=== PATIENT | male | born 1940 | race Caucasian/White ===

== ENCOUNTER 2018-06-09 08:50 | Day surgery (SDC) | payer MEDICARE, BC ==
[2018-06-08 13:09] VITALS: BMI 32.1
[2018-06-09] MEDS ORDERED: PROPOFOL 200 MG/20 ML VIAL ONE (09:42)
[2018-06-09 09:44] LABS: #Eosinphils 0.1 thou/uL (0.0-0.7); #Lymphocytes 1.6 thou/uL (1.20-3.40); #Monocytes 0.5 thou/uL (0.11-0.59); #Neutrophils 3.6 thou/uL (1.40-6.50); %Basophils 0.4 % (0.0-1.0); %Eosinophils 2.3 % (0.0-10.0); %Lymphocytes 27.4 % (21.0-51.0); %Monocytes 8.7 % (0.0-10.0); %Neutrophils 61.2 % (42.0-75.0); Hemoglobin 14.1 g/dL (14.0-18.0); Mean Corpuscular HGB CONC 33.6 g/dL (32.0-36.0); Mean Corpuscular Hemoglobin 29.9 pg (27.0-31.0); Mean Corpuscular Volume 89.1 fL (78.0-98.0); Mean Platelet Volume 6.6 fL (7.4-10.4); Platelet Count 230 thou/uL (130-400); RBC Distribution Width 14.4 % (11.5-14.5); White Blood Cell (WBC) Count 5.9 thou/uL (4.8-10.8)
[2018-06-09] MEDS ORDERED: PROPOFOL 0 ML ONE (09:46)
[2018-06-09 09:51] LABS: PTT 37.9 SEC (22.9-36.1); Prothrombin Time 22.5 SEC (12.0-14.7)
[2018-06-09 10:06] LABS: Anion Gap 12 mmol/L (10-20); BUN (Urea Nitrogen) 11 mg/dL (8.4-25.7); Calc. Creatinine Clearance 94 mL/min (70-130); Calcium 9.3 mg/dL (7.8-10.44); Carbon Dioxide 25 mmol/L (23-31); Chloride 103 mmol/L (98-107); Estimated GFR-MDRD 83; Glucose 135 mg/dL (83-110); Potassium 3.9 mmol/L (3.5-5.1); Sodium 136 mmol/L (136-145)
[2018-06-09] MEDS ORDERED: PROPOFOL 20 ML ONE (10:29)
--- NOTE | 2018-06-09 19:42 | OP ---
DATE OF PROCEDURE: 06/09/2018 CARDIOVERSION REPORT REASON FOR PROCEDURE: Mr. Rodriguez has had a history of atrial fibrillation/flutter with slow ventricula r rates. He is here for a planned cardioversion. DESCRIPTION OF PROCEDURE: The patient received propofol per Anesthesia specialist. After adequate l evel of sedation achieved, a synchronized 200 joule shock promptly converted the patient back to sinu s rhythm 2:1 AV block. The patient is asymptomatic. PLAN: 1. We will continue to monitor him as an outpatient. 2. Continue oral anticoagulation as before.
--- NOTE | 2018-06-12 10:09 | EKG ---
Test Reason : PREOP CARDIOVERSION Blood Pressure : / mmHG Vent. Rate : 041 BPM Atrial Rate : 241 BPM P-R Int : 000 ms QRS Dur : 084 ms QT Int : 470 ms P-R-T Axes : 000 -21 -19 degrees QTc Int : 387 ms Atrial fibrillation with slow ventricular response Nonspecific T wave abnormality Abnormal ECG Confirmed by DR. Amairani HENRY ([id number]) on 06/12/2018 10:09:01 AM Referred By: MAYRA Confirmed By:DR. Amairani HENRY
--- NOTE | 2018-06-12 10:12 | EKG ---
Test Reason : POST CARDIOVERSION Blood Pressure : / mmHG Vent. Rate : 048 BPM Atrial Rate : 048 BPM P-R Int : 252 ms QRS Dur : 092 ms QT Int : 544 ms P-R-T Axes : 073 -18 029 degrees QTc Int : 485 ms Marked sinus bradycardia with 1st degree A-V block with Premature atrial complexes with Abberant cond uction Prolonged QT Abnormal ECG When compared with ECG of 09-JUN-2018 09:41, (Unconfirmed) Sinus rhythm has replaced Junctional rhythm Nonspecific T wave abnormality, improved in Inferior leads QT has lengthened Confirmed by DR. Amairani HENRY ([id number]) on 06/12/2018 10:11:26 AM Referred By: [facility] Confirmed By:DR. Amairani HENRY
== END 2018-06-09 13:55 ==
LOC: CCL 08:50
PROVIDERS: ATTEND Internal Medicine Cardiovascular Disease
PROC: 5A2204Z Restoration of Cardiac Rhythm, Single (ICD-10-PCS; principal; 2018-06-09)
DX: I48.1 Persistent atrial fibrillation (principal); E11.9 Type 2 diabetes mellitus without complications; I10 Essential (primary) hypertension; E78.00 Pure hypercholesterolemia, unspecified; Z79.02 Long term (current) use of antithrombotics/antiplatelets; Z79.84 Long term (current) use of oral hypoglycemic drugs; Z79.82 Long term (current) use of aspirin; Z79.899 Other long term (current) drug therapy
CPT/HCPCS: 80048; 85025; 85610; 85730; 92960; 93005; 93010; J2704

== ENCOUNTER 2018-07-24 06:28 | Day surgery (SDC) | payer MEDICARE, BC ==
[2018-07-24 09:30] LABS: #Eosinphils 0.1 thou/uL (0.0-0.7); #Lymphocytes 1.6 thou/uL (1.20-3.40); #Monocytes 0.6 thou/uL (0.11-0.59); #Neutrophils 4.1 thou/uL (1.40-6.50); %Basophils 0.7 % (0.0-1.0); %Lymphocytes 24.8 % (21.0-51.0); %Monocytes 9.4 % (0.0-10.0); %Neutrophils 63.2 % (42.0-75.0); Hemoglobin 14.4 g/dL (14.0-18.0); Mean Corpuscular HGB CONC 31.9 g/dL (32.0-36.0); Mean Corpuscular Hemoglobin 29.8 pg (27.0-31.0); Mean Corpuscular Volume 93.4 fL (78.0-98.0); Mean Platelet Volume 7.7 fL (7.4-10.4); Platelet Count 249 thou/uL (130-400); RBC Distribution Width 14.1 % (11.5-14.5); Red Blood Cell (RBC) Count 4.82 mill/uL (4.70-6.10); White Blood Cell (WBC) Count 6.5 thou/uL (4.8-10.8)
[2018-07-24 09:39] LABS: Prothrombin Time 13.6 SEC (12.0-14.7)
[2018-07-24 09:46] LABS: Anion Gap 10 mmol/L (10-20); BUN (Urea Nitrogen) 12 mg/dL (8.4-25.7); Calc. Creatinine Clearance 0 mL/min (70-130); Calcium 9.2 mg/dL (7.8-10.44); Carbon Dioxide 27 mmol/L (23-31); Chloride 104 mmol/L (98-107); Estimated GFR-MDRD 76; Glucose 186 mg/dL (83-110); Potassium 4.2 mmol/L (3.5-5.1); Sodium 137 mmol/L (136-145)
[2018-07-24] MEDS ORDERED: Propofol 1,000 MG/100 ML VIAL IV ONE ×2 (11:09→12:18)
[2018-07-24] MEDS ORDERED: CEFAZOLIN 1 GM VIAL ONE (11:12)
[2018-07-24] MEDS ORDERED: Iopamidol 370 76% 50 ML VIAL FS ONE (11:57)
--- NOTE | 2018-07-24 14:59 | EKG ---
Test Reason : PREOP Blood Pressure : / mmHG Vent. Rate : 050 BPM Atrial Rate : 092 BPM P-R Int : 000 ms QRS Dur : 092 ms QT Int : 474 ms P-R-T Axes : 000 -11 013 degrees QTc Int : 432 ms Sinus rhythm with 2nd degree A-V block with 2:1 A-V conduction Nonspecific T wave abnormality Abnormal ECG Confirmed by DALE CEVALLOS ([id number]) on 07/24/2018 2:59:15 PM Referred By: MAYRA Confirmed By:DALE CEVALLOS
--- NOTE | 2018-07-24 15:25 | RAD ---
SINGLE VIEW CHEST: HISTORY: Pacemaker placement. COMPARISON: 03/28/2008 FINDINGS: Single view of the chest shows an enlarged but stable cardiomediastinal silhouette. There is a left subclavian pacemaker with its leads in the right atrium, right ventricle, and coronary sinus. No pne umothorax is seen. There is no evidence of consolidation, mass, or pleural effusion. IMPRESSION: Status post pacemaker placement without evidence of complication. POS: [facility]
== END 2018-07-24 16:00 | disposition home or self-care (01) ==
LOC: CCL 06:28
PROVIDERS: ATTEND Internal Medicine Cardiovascular Disease
PROC: 0JH607Z Insertion of Cardiac Resynchronization Pacemaker Pulse Generator into Chest Subcutaneous Tissue and Fascia, Open Approach (ICD-10-PCS; principal; 2018-07-24)
PROC: 02H63JZ Insertion of Pacemaker Lead into Right Atrium, Percutaneous Approach (ICD-10-PCS; 2018-07-24)
PROC: 02HK3JZ Insertion of Pacemaker Lead into Right Ventricle, Percutaneous Approach (ICD-10-PCS; 2018-07-24)
PROC: 02H43JZ Insertion of Pacemaker Lead into Coronary Vein, Percutaneous Approach (ICD-10-PCS; 2018-07-24)
DX: I48.1 Persistent atrial fibrillation (principal); I25.10 Atherosclerotic heart disease of native coronary artery without angina pectoris; I44.30 Unspecified atrioventricular block; E11.9 Type 2 diabetes mellitus without complications; E78.00 Pure hypercholesterolemia, unspecified; I10 Essential (primary) hypertension; Z79.01 Long term (current) use of anticoagulants; Z79.82 Long term (current) use of aspirin; Z79.84 Long term (current) use of oral hypoglycemic drugs; Z79.899 Other long term (current) drug therapy; Z95.5 Presence of coronary angioplasty implant and graft
CPT/HCPCS: 33208; 33225; 36005; 71045; 75820; 80048; 85025; 85610; 85730; 93005; 93010; C1730; C1882; C1898; J0690; J2704; J3490

== ENCOUNTER 2022-05-12 11:58 | Outpatient (CLI) | payer MEDICARE, BC | END 2022-05-12 11:59 | disposition home or self-care (01) | LOC: MRI 11:58 | PROVIDERS: ATTEND Surgery | DX: M47.26 Other spondylosis with radiculopathy, lumbar region (principal); M47.816 Spondylosis without myelopathy or radiculopathy, lumbar region; M51.36 Other intervertebral disc degeneration, lumbar region; M48.061 Spinal stenosis, lumbar region without neurogenic claudication; M47.817 Spondylosis without myelopathy or radiculopathy, lumbosacral region; M48.07 Spinal stenosis, lumbosacral region; M51.87 Other intervertebral disc disorders, lumbosacral region | CPT/HCPCS: 72120; 72148 ==

== ENCOUNTER 2024-07-23 12:13 | Outpatient (CLI) | payer MEDICARE, BC ==
[2024-07-23 13:47] LABS: #Basophils Less than 0.03 10x3/uL (0.0-0.2); %Basophils 0.3 % (0.0-1.0); %Eosinophils 2.3 % (0.0-10.0); %Lymphocytes 21.8 % (21.0-51.0); %Monocytes 9.3 % (0.0-10.0); %Neutrophils 65.8 % (42.0-75.0); Hematocrit 44.2 % (42.0-52.0); Hemoglobin 14.8 g/dL (14.0-18.0); Mean Corpuscular HGB CONC 33.5 g/dL (32.0-36.0); Mean Corpuscular Hemoglobin 30.7 pg (27.0-31.0); Mean Corpuscular Volume 91.7 fL (78.0-98.0); Mean Platelet Volume 10.1 fL (7.4-10.4); Platelet Count 214 10x3/uL (130-400); RBC Distribution Width 13.5 % (11.5-14.5); Red Blood Cell (RBC) Count 4.82 mill/uL (4.70-6.10)
[2024-07-23 14:01] LABS: Hemoglobin A1c 8.2 % (4.0-6.0)
[2024-07-23 14:03] LABS: INR-International Normal Ratio 0.9; PTT 29.7 sec (22.9-36.1); Prothrombin Time 12.4 sec (12.0-14.7)
[2024-07-23 15:43] LABS: Anion Gap 12 mmol/L (10-20); BUN (Urea Nitrogen) 19 mg/dL (8.4-25.7); Calc. Creatinine Clearance 0 mL/min (70-130); Calcium 9.3 mg/dL (7.8-10.44); Carbon Dioxide 24 mmol/L (23-31); Chloride 101 mmol/L (98-107); Estimated GFR 79; Glucose 262 mg/dL (83-110); Potassium 4.4 mmol/L (3.5-5.1); Sodium 133 mmol/L (136-145)
== END 2024-07-23 12:14 | disposition home or self-care (01) ==
LOC: LABBT 12:13
PROVIDERS: ATTEND Surgery
DX: Z01.812 Encounter for preprocedural laboratory examination (principal); M48.062 Spinal stenosis, lumbar region with neurogenic claudication; M71.30 Other bursal cyst, unspecified site; Z95.1 Presence of aortocoronary bypass graft; E11.9 Type 2 diabetes mellitus without complications
CPT/HCPCS: 80048; 83036; 85025; 85610; 85730

== ENCOUNTER 2024-07-26 06:18 | Inpatient (IN) | payer MEDICARE, BC ==
[2024-07-26] MEDS ORDERED: Thrombin 5000 UNITS/5 ML VIAL ONE (06:24)
[2024-07-26] MEDS ORDERED: Vancomycin 1 GM VIAL ONE (06:24)
[2024-07-26] MEDS ORDERED: Lidocaine 1% PF 5 ML VIAL ONE (06:53)
[2024-07-26] MEDS ORDERED: PROPOFOL 20 ML ONE (06:53)
[2024-07-26] MEDS ORDERED: Fentanyl 250 MCG/5 ML VIAL ONE (06:53)
[2024-07-26] MEDS ORDERED: Rocuronium Bromide 10 MG/ML (10ML VIAL) ONE (06:53)
[2024-07-26] MEDS ORDERED: CEFAZOLIN 2 GM VIAL ONE (07:13)
[2024-07-26] MEDS ORDERED: Sterile Water 10 ML ONE (07:45)
[2024-07-26] MEDS ORDERED: Dexamethasone 20 MG/5 ML VIAL ONE (08:43)
[2024-07-26] MEDS ORDERED: Ondansetron PF 4 MG/2 ML Vial ONE (09:07)
[2024-07-26] MEDS ORDERED: Vecuronium 10 MG VIAL ONE (09:44)
[2024-07-26] MEDS ORDERED: Morphine Sulfate 2 MG/ML SYRINGE SLOW IVP PRN (10:09)
[2024-07-26] MEDS ORDERED: Ondansetron HCl/PF 4 MG/2 ML Vial IVP PRN (10:09)
[2024-07-26] MEDS ORDERED: Promethazine HCl 25 MG/ML VIAL IM PRN (10:09)
[2024-07-26] MEDS ORDERED: PACU-Morphine 4MG/ML VIAL SLOW IVP PRN (10:09)
[2024-07-26] MEDS ORDERED: HYDROmorphone 2 MG/ML VIAL SLOW IVP PRN (10:09)
[2024-07-26] MEDS ORDERED: SUGAMMADEX SODIUM 200 MG/2 ML VIAL ONE (11:03)
[2024-07-26] MEDS ORDERED: Acetaminophen 325 MG TAB PO PRN (11:25)
[2024-07-26] MEDS ORDERED: Milk Of Magnesia 30 ML UDCUP PO PRN (11:25)
[2024-07-26] MEDS ORDERED: Acetaminophen/Codeine 30-300mg Tablet PO PRN (11:25)
[2024-07-26] MEDS ORDERED: Ondansetron PF 4 MG/2 ML Vial IVP PRN (11:25)
[2024-07-26] MEDS ORDERED: Pseudoephedrine HCl 30 MG TAB PO PRN (11:29)
[2024-07-26] MEDS ORDERED: CO Q-10 CAPSULE 100 MG PO PRN (11:29)
[2024-07-26] MEDS ORDERED: FLUOCINONIDE TOP PRN (11:29)
[2024-07-26] MEDS ORDERED: fentaNYL 50 mcg/mL 1 mL Vial ONE ×3 (11:40→13:03)
[2024-07-26] MEDS ORDERED: HYDROmorphone 0.5 MG/0.5 ML SYRINGE ONE (12:01)
[2024-07-26] MEDS ORDERED: Triamcinolone 0.1% Cream 15 GM TUBE TOP PRN (12:25)
[2024-07-26] MEDS ORDERED: Betamethasone 0.1% Cream 15 GM TUBE TOP PRN (12:26)
[2024-07-26] MEDS: CEFAZOLIN 2 GM in Sodium Chloride 0.9% 100 ML IVPB SCH (16:09)
[2024-07-26] MEDS: Gabapentin 300 MG CAP PO SCH (16:09)
[2024-07-26] MEDS: Morphine 2 MG/ML VIAL SLOW IVP PRN (16:10)
[2024-07-26] MEDS: FLU (Fluad Triv) TS24-25 (65UP)/MF59C/PF 45 MCG/0.5 ML Syringe IM ONE (16:25)
[2024-07-26] MEDS ORDERED: METFORMIN HCL PO SCH (17:00)
[2024-07-26] MEDS ORDERED: GLYBURIDE PO SCH (17:00)
[2024-07-26] MEDS ORDERED: [UNRECOGNIZED DRUG - OTHER] PO SCH (17:00)
[2024-07-26] MEDS: metFORMIN 500 MG TAB PO SCH (17:39)
[2024-07-26] MEDS: HYDROcodone/Acetaminophen 7.5/325 mg Tablet PO PRN (17:39)
[2024-07-26] MEDS: diphenhydrAMINE 25 MG CAP PO PRN (17:39)
[2024-07-26] MEDS: glyBURIDE 5 MG TAB PO SCH (19:34)
[2024-07-26] MEDS: Loratadine 10 MG TAB PO SCH (20:46)
[2024-07-26] MEDS: Spironolactone 25 MG TAB PO SCH (20:46)
[2024-07-26] MEDS: cloNIDine 0.1 MG TAB PO SCH (20:46)
[2024-07-26] MEDS ORDERED: CLOBETASOL PROPIONATE TOP SCH (21:00)
[2024-07-26] MEDS: Clobetasol 0.05% Cream 15 gm Tube TOP SCH (21:46)
[2024-07-27] MEDS: Sodium Chloride 0.9% 1,000 ML IV SCH (01:31)
[2024-07-27] MEDS: Atorvastatin Calcium 40 MG TAB PO SCH (09:30)
[2024-07-27] MEDS: Empagliflozin 10 MG TAB PO SCH (09:32)
[2024-07-27] MEDS: Lisinopril 5 MG TAB PO SCH (09:33)
[2024-07-27] MEDS: Furosemide 20 MG TAB PO SCH (09:33)
[2024-07-27] MEDS: Pioglitazone HCl 15 MG TAB PO SCH (09:33)
[2024-07-27] MEDS: Amlodipine 5 MG TAB PO SCH (09:34)
[2024-07-27 12:22] VITALS: BMI 29.8
[2024-07-28] MEDS: tiZANidine HCl 4 MG TAB PO PRN (05:42)
[2024-07-28 13:36] VITALS: BP 136/72; TEMP 97.6
== END 2024-07-28 13:00 | disposition home or self-care (01) | DRG 520 ==
LOC: SDC 06:18 → SURG A 13:54 → OBSVTOIN 07-27 07:10
PROVIDERS: ADMIT Surgery; ATTEND Surgery
PROC: 01NB0ZZ Release Lumbar Nerve, Open Approach (ICD-10-PCS; principal; 2024-07-26)
PROC: 00NY0ZZ Release Lumbar Spinal Cord, Open Approach (ICD-10-PCS; 2024-07-26)
DX: M48.061 Spinal stenosis, lumbar region without neurogenic claudication (principal); M71.38 Other bursal cyst, other site; M54.16 Radiculopathy, lumbar region; Z79.899 Other long term (current) drug therapy
CPT/HCPCS: 90653; J1100; J2272; J2405; J2704; J3010; J3370

== ENCOUNTER 2024-11-06 05:47 | Day surgery (SDC) | payer MEDICARE, BC ==
[2024-10-30 15:26] VITALS: BMI 27.7
[2024-11-06 06:23] LABS: #Basophils Less than 0.03 10x3/uL (0.0-0.2); %Basophils 0.3 % (0.0-1.0); %Eosinophils 1.5 % (0.0-10.0); %Lymphocytes 24.9 % (21.0-51.0); %Monocytes 7.1 % (0.0-10.0); %Neutrophils 65.6 % (42.0-75.0); Hematocrit 47.1 % (42.0-52.0); Hemoglobin 15.6 g/dL (14.0-18.0); Mean Corpuscular HGB CONC 33.1 g/dL (32.0-36.0); Mean Corpuscular Hemoglobin 29.1 pg (27.0-31.0); Mean Corpuscular Volume 87.9 fL (78.0-98.0); Mean Platelet Volume 9.2 fL (7.4-10.4); Platelet Count 256 10x3/uL (130-400); RBC Distribution Width 15.4 % (11.5-14.5); Red Blood Cell (RBC) Count 5.36 mill/uL (4.70-6.10)
[2024-11-06 06:37] LABS: Anion Gap 15 mmol/L (10-20); BUN (Urea Nitrogen) 15 mg/dL (8.4-25.7); Calc. Creatinine Clearance 71 mL/min (70-130); Calcium 9.4 mg/dL (7.8-10.44); Carbon Dioxide 22 mmol/L (23-31); Chloride 103 mmol/L (98-107); Estimated GFR 84; Glucose 206 mg/dL (83-110); Sodium 136 mmol/L (136-145)
[2024-11-06] MEDS ORDERED: Lidocaine 2% PF 100 mg/5 ml Syringe ONE (08:09)
[2024-11-06] MEDS ORDERED: PROPOFOL 20 ML ONE (08:09)
== END 2024-11-06 09:52 | disposition home or self-care (01) ==
LOC: SDC 05:47
PROVIDERS: ATTEND Internal Medicine Cardiovascular Disease
PROC: 5A2204Z Restoration of Cardiac Rhythm, Single (ICD-10-PCS; principal; 2024-11-06)
DX: I48.19 Other persistent atrial fibrillation (principal); I11.0 Hypertensive heart disease with heart failure; I50.32 Chronic diastolic (congestive) heart failure; I25.10 Atherosclerotic heart disease of native coronary artery without angina pectoris; I25.2 Old myocardial infarction; I44.2 Atrioventricular block, complete; I42.9 Cardiomyopathy, unspecified; I47.20 Ventricular tachycardia, unspecified; I82.409 Acute embolism and thrombosis of unspecified deep veins of unspecified lower extremity; J45.909 Unspecified asthma, uncomplicated; G47.30 Sleep apnea, unspecified; E11.9 Type 2 diabetes mellitus without complications; E78.00 Pure hypercholesterolemia, unspecified; E66.9 Obesity, unspecified; Z68.27 Body mass index [BMI] 27.0-27.9, adult; Z95.0 Presence of cardiac pacemaker; Z95.1 Presence of aortocoronary bypass graft; Z95.5 Presence of coronary angioplasty implant and graft; Z79.1 Long term (current) use of non-steroidal anti-inflammatories (NSAID); Z79.01 Long term (current) use of anticoagulants; Z79.84 Long term (current) use of oral hypoglycemic drugs; Z79.899 Other long term (current) drug therapy
CPT/HCPCS: 80048; 82962; 85025; 92960; J2003; J2704; 36416